=== PATIENT | male | born 1995 | race Caucasian/White ===

== ENCOUNTER 2017-09-28 01:27 | Emergency (ER) | payer BC ==
[2017-09-28] MEDS ORDERED: Ibuprofen TAB* 400 MG PO ONE (03:24)
--- NOTE | 2017-09-28 03:28 | ED ---
Telma Jesus Emily, scribed for Jude Barrera MD on 09/28/17 at 0325 . Lower Extremity - HPI Summary HPI Summary: This patient is a 22 year old M presenting to [facility] accompanied by friend with a chief complaint of L ankle pain that began status post fall at 0100. Pt reports rolling his ankle and hearing a pop. The patient rates the pain 3/10 in severity. Symptoms aggravated by nothing. Symptoms alleviated by nothing. Patient denies ability to bear weight and numbness. - History of Current Complaint Chief Complaint: EDExtremityLower Stated Complaint: LEFT ANKLE INJURY Hx Obtained From: Patient Mechanism Of Injury: Fall From A Standing Position Onset of Pain: Immediate Onset/Duration: Hours Severity Initially: Mild Severity Currently: Mild Pain Intensity: 3 Pain Scale Used: 0-10 Numeric Timing: Constant Location: Is Discrete @ - L ankle Associated Signs And Symptoms: Positive: Swelling Aggravating Factor(s): Nothing Alleviating Factor(s): Nothing Able to Bear Weight: No - Allergies/Home Medications Allergies/Adverse Reactions: Allergies Allergy/AdvReac Type Severity Reaction Status Date / Time No Known Allergies Allergy Verified 09/28/17 01:43 Home Medications: Home Medications NK [No Home Medications Reported] 09/28/17 [History Confirmed 09/28/17] PMH/Surg Hx/FS Hx/Imm Hx Previously Healthy: Yes Opthamlomology History: Denies: Hx Legally Blind EENT History: Denies: Hx Deafness - Surgical History Surgery Procedure, Year, and Place: WISDOM TEETH REMOVAL Infectious Disease History: No Infectious Disease History: Denies: Traveled Outside the [place] in Last 30 Days - Family History Known Family History: Negative: Cardiac Disease, Diabetes - Social History Occupation: Student Lives: Dormitory/Roommates Alcohol Use: Occasionally Substance Use Type: Reports: None Smoking Status (MU): Never Smoked Tobacco Have You Smoked in the Last Year: No Review of Systems Positive: Other - Positive L ankle pain and inability to bear weight. Negative: Numbness All Other Systems Reviewed And Are Negative: Yes Physical Exam - Summary Physical Exam Summary: Appearance: Well-appearing, Well-nourished, lying in bed comfortably Skin: Warm, dry, no obvious rash Eyes: sclera anicteric, no conjunctiva pallor ENT: mucous membranes moist, pharynx appears normal Neck: Supple, nontender Respiratory: Clear to auscultation, no signs of respiratory distress Cardiovascular: Normal S1, S2. No murmurs. Normal distal pulses in tibial and radial bilaterally. Abdomen: Soft, nontender, normal active bowel sounds present Musculoskeletal: Achilles looks to be intact. There is moderate swelling around the lateral malleolus with some associated tenderness. A little bit of swelling over the anterior ankle. No tenderness over the fifth metatarsal. Neurological: A&Ox3, awake and alert, mentation is normal, speech is fluent and appropriate Psychiatric: affect is normal, does not appear anxious or depressed Triage Information Reviewed: Yes Vital Signs On Initial Exam: Initial Vitals Temp Pulse Resp BP Pulse Ox 98.8 F 97 18 118/66 98 09/28/17 01:42 09/28/17 01:42 09/28/17 01:42 09/28/17 01:42 09/28/17 01:42 Vital Signs Reviewed: Yes Diagnostics - Vital Signs Vital Signs Temp Pulse Resp BP Pulse Ox 09/28/17 01:42 98.8 F 97 18 118/66 98 - Laboratory Lab Statement: Any lab studies that have been ordered have been reviewed, and results considered in the medical decision making process. - Radiology Ankle XR Radiology Interpretation Completed By: ED Physician - Ankle XR reveals, per ED physician, no fracture. Lower Extremity Course/Dx - Diagnoses Differential Diagnosis/HQI/PQRI: Positive: Sprain - left ankle Provider Diagnoses: Ankle sprain Discharge - Sign-Out/Discharge Documenting (check all that apply): Discharge/Admit/Transfer - Discharge Plan Condition: Good Disposition: HOME Patient Education Materials: Ankle Sprain (ED) Referrals: No Primary Care Phys,NOPCP [Primary Care Provider] - - Billing Disposition and Condition Condition: GOOD Disposition: HOME The documentation as recorded by the Telma hunter Emily accurately reflects the service I personally performed and the decisions made by me, Jude Barrera MD.
[2017-09-28 04:04] VITALS: BP 114/60
--- NOTE | 2017-09-28 08:05 | RAD ---
HISTORY: Left ankle pain COMPARISONS: February 11, 2017 VIEWS: 3, Frontal, lateral, and oblique views of the left ankle FINDINGS: BONE DENSITY: Normal. BONES: There is no displaced fracture. There is an exostosis of the posterior distal tibia. JOINTS: There is no arthropathy. ALIGNMENT: There is no dislocation. SOFT TISSUES: There is soft tissue swelling most pronounced of the lateral malleolus. OTHER FINDINGS: None. IMPRESSION: 1. SOFT TISSUE SWELLING. 2. EXOSTOSIS OF THE POSTERIOR DISTAL TIBIA. 3. NO ACUTE OSSEOUS INJURY. IF SYMPTOMS PERSIST, RECOMMEND REPEAT IMAGING.
== END 2017-09-28 04:03 | disposition home or self-care (01) ==
LOC: ED 01:27
DX: S93.402A Sprain of unspecified ligament of left ankle, initial encounter (principal); W19.XXXA Unspecified fall, initial encounter; Y92.9 Unspecified place or not applicable; M89.9 Disorder of bone, unspecified
CPT/HCPCS: 99282